=== PATIENT | male | born 1955 | race Caucasian/White ===

== ENCOUNTER → 2024-07-04 11:36 | Outpatient (REF) | payer MEDICARE, OTHER, SELFPAY | LOC: RAD 11:36 | PROVIDERS: ATTENDING PHYSICIAN Family Medicine | DX: R10.84 Generalized abdominal pain (principal) | CPT/HCPCS: 74177; Q9967 ==

== ENCOUNTER → 2025-01-10 13:43 | Outpatient (REF) | payer MEDICARE, OTHER, SELFPAY | LOC: HWRAD 13:43 | PROVIDERS: ATTENDING PHYSICIAN Family Medicine | DX: Z87.891 Personal history of nicotine dependence (principal) | CPT/HCPCS: 71271 ==

== ENCOUNTER 2025-07-29 07:45 | Emergency (ER) | payer MEDICARE, OTHER, SELFPAY ==
[2025-07-29 07:55] VITALS: BP 140/97
[2025-07-29 08:07] VITALS: BP 177/102
[2025-07-29 08:50] VITALS: BP 146/85
[2025-07-29 09:46] LABS: Hematocrit 46.1 % (39.0-52.0); Hemoglobin 14.8 g/dL (13.0-18.0); Mean Corp Hgb Conc. 32.1 g/dL (33.0-37.0); Mean Corpuscular Volume 86.8 fL (80.0-94.0); Nucleated Red Blood Cells % 0 % (-); Red Cell Dist. Width 14.4 % (11.5-14.5)
[2025-07-29 10:00] VITALS: BP 121/78
[2025-07-29 10:23] LABS: ALT (SGPT) 26 U/L (0-50); AST (SGOT) 20 U/L (17-59); Albumin 4.6 g/dl (3.5-5.0); Alkaline Phosphatase 67 U/L (38-126); Blood Urea Nitrogen 29 mg/dl (9-20); Calcium 10.0 mg/dl (8.4-10.2); Carbon Dioxide 23 mmol/L (22-30); Chloride 107 mmol/L (98-107); Glucose 105 mg/dl (70-99); Potassium 5.2 mmol/L (3.5-5.1); Sodium 140 mmol/L (135-145); Total Protein 7.5 g/dl (6.3-8.2); eGFR > 60.00
--- NOTE | 2025-07-29 10:26 | ED.CVA ---
History of Present Illness
General
Chief Complaint: CVA/TIA Symptoms
Source: patient and family
Time Seen by Provider: 07/29/25 08:10
Onset of Stroke Symptoms
Onset of symptoms known: Yes
Date of onset of symptoms: 07/28/25
History of Present Illness
History of Present Illness:
69-year-old male presents to the emergency room complaining of right facial droop. Patient noticed the symptoms least 24 hours prior to arrival. Denies any focal weakness numbness or tingling elsewhere in his body. He has noticed that he cannot
hold water in that side of his face. Also feels like his right eye is not blinking properly. No headache. No known tick exposures.
Past History
Past History
ED Past Medical History: HTN and Hypercholesterolemia
ED Past Surgical History: Other (hernia, shoulder)
Social History
Tobacco: Smoker
Alcohol: Occasional
Drug: None
Personal:
Living: with family
Phy Exam
Physical Exam
Physical Exam:
General: Awake, Alert, Oriented X3. No acute distress.
Vitals: unremarkable
Head: Atraumatic
Eyes: Pupils equal, EOMI
Throat: Airway intact, no exudates
Neck: Trachea midline
Lungs: Clear and equal b/l
Heart: Regular rate, no murmurs
Abd: Soft, Nontender, No pulsatile mass
Neuro: Peripheral right facial droop. Patient has decreased movement of the forehead, eyebrow, right eyelid as well as the right side of his mouth. No focal weakness in the extremities. Sensation intact bilaterally. Gait intact
Skin: Warm, dry, no rash
Extremities: pulses equal b/l, no edema
Course
Orders/Labs/Results
Orders:
Orders
07/29/25 08:10
Electrocardiogram (*1) Stat
Reason for Study: Other
Other Reason for Exam: neuro symptoms
CT Head W/o Iv Contrast Urgent
Comment:
Reason For Exam: r facial droop
Cardiac Monitoring- Treatment ONCE
EKG- Treatment ONCE
07/29/25 09:04
Complete Blood Count/With Diff Urgent
Lyme Progressive Urgent
07/29/25 09:53
Comprehensive Metabolic Panel Urgent
07/29/25 10:28
Prednisone [Deltasone] 50 mg PO NOW STA
Valacyclovir HCl [Valtrex] 1,000 mg PO NOW STA
Abnormal Lab Results
07/29/25 07/29/25
09:04 09:53
MCHC 32.1 L g/dL
(33.0-37.0)
Abs Immat Gran (auto) 0.1 H 10^3/uL
(0-0.05)
Absolute Neuts (auto) 7.8 H 10^3/uL
(1.4-6.5)
Immature Gran % 0.7 H %
(0-0.5)
Neutrophils % 76.6 H %
(42.2-75.2)
Lymphocytes % 14.4 L %
(20.5-51.1)
Potassium 5.2 H mmol/L
(3.5-5.1)
BUN 29 H mg/dl
(9-20)
Glucose 105 H mg/dl
(70-99)
07/29/25 09:04
07/29/25 09:53
Vital Signs
Initial and Last Documented VS:
Initial Vital Signs
Temp Pulse Resp BP Pulse Ox
98.7 F 94 18 140/97 99
07/29/25 07:55 07/29/25 07:55 07/29/25 07:55 07/29/25 07:55 07/29/25 07:55
Last Documented Vital Signs
Temp Pulse Resp BP Pulse Ox
98.7 F 61 14 121/78 98
07/29/25 07:55 07/29/25 10:15 07/29/25 10:15 07/29/25 10:00 07/29/25 10:26
MDM/Problems Addressed
Differential Diagnosis Includes:
Jalloh's palsy, Lyme, mass occupying lesion
MDM/Problems Addressed:
Patient presents with right facial droop. Right facial droop was somewhat subtle but definitely appears to be a peripheral lesion. CT of the head shows no acute abnormality. Patient will be discharged with prednisone, valacyclovir
*Radiology
Radiology exam reviewed: radiology read reviewed
*Pulse Oximetry
SaO2: 98
Oxygen Mode of Delivery: Room air
Patient hypoxic: no
*EKG
Interpreted by ED Provider?: Yes
Interpretation: normal
Heart Rate: 64
Rate: normal
Rhythm: sinus
[place]: normal axis
Interval: normal interval
QRS Pattern: normal QRS
Ischemia: no ischemia
*Field Party Manager Interpretation
Rate: normal
Interpretation: normal
Heart Rate: 64
Rhythm: sinus
*Critical Care Note
Total Time (30-74mins, 75-104mins- exclusive of procedures): Not Applicable
ED Attending Note
-
Portions of this chart may have been created with voice recognition software.� Occasional wrong word or��sound alike� substitutions may have occurred due to the inherent limitations of voice recognition software.
Discharge Plan
Departure
Patient Disposition: Home (Routine Discharge)
Date of Disposition: 07/29/25
Time of Disposition: 10:26
Patient with high blood pressure during this ER visit?: Yes
Condition: Good
Discharge Problem:
Jalloh's palsy
Instructions: Jalloh's Palsy (DC)
Prescriptions:
New
valacyclovir [Valtrex] 1 gram tablet
1,000 mg PO TID Qty: 21 0RF
prednisone 50 mg tablet
50 mg PO DAILY Qty: 5 0RF
No Action
quinapril 40 MG tablet
40 mg PO DAILY
docusate sodium 100 MG capsule
100 mg PO DAILY
propranolol 120 MG capsule,extended release 24 hr
120 mg PO DAILY
metformin 500 MG tablet extended release 24 hr
1,000 mg PO BID
cholecalciferol (vitamin D3) 2,000 UNITS tablet
2,000 units PO DAILY
pitavastatin calcium [Livalo] 2 MG tablet
4 mg PO DAILY
icosapent ethyl [Vascepa] 1 GM capsule
2 gm PO BID
empagliflozin [Jardiance] 10 MG tablet
10 mg PO DAILY
fluticasone propion-salmeterol [Advair Diskus] 1 EACH blister with device
1 puff inhalation BID
Ventolin Hfa
1 puff inhalation BID PRN (Reason: wheezing)
hydrocodone-acetaminophen 1 TABLET tablet
1 - 2 tab PO Q4HPRN PRN (Reason: moderate to severe pain) Qty: 15 0RF
Referrals:
Fran Cherry MD [Family Provider, Family Practice]
Interventions
Interventions:
*Risk Screen - Suicide Last Done: 07/29/25 07:55
*General Assessment Last Done: 07/29/25 07:55
*Neglect/Abuse Screening Last Done: 07/29/25 07:55
*ED- Fall Risk Assessment Last Done: 07/29/25 10:30
*ED COVID-19 Vaccine History Last Done: 07/29/25 10:30
*ED Influenza Vaccine History Last Done: 07/29/25 10:30
*Nursing Disposition Last Done: 07/29/25 10:30
ED- Pulmonary Assessment Last Done: 07/29/25 09:42
ED- Neurological Assessment Last Done: 07/29/25 09:42
ED- Cardiac Assessment Last Done: 07/29/25 09:42
ED Swallowing Screen Last Done: 07/29/25 09:30
Discharge Date and Time
Print Language: HUNGARIAN
[2025-07-29] MEDS: VALTREX 1000 MG PO (10:36)
[2025-07-29] MEDS: DELTASONE 50 MG PO (10:37)
[2025-07-29 16:09] LABS: Lyme Antibody Screen, EIA Negative (Negative)
== END 2025-07-29 10:30 | disposition home or self-care (01) ==
LOC: EMR 07:45
PROVIDERS: EMERGENCY PHYSICIAN Emergency Medicine; FAMILY PHYSICIAN Family Medicine
DX: G51.0 Bell's palsy (principal); I10 Essential (primary) hypertension; E78.00 Pure hypercholesterolemia, unspecified; F17.200 Nicotine dependence, unspecified, uncomplicated
CPT/HCPCS: 99284; 70450; 80053; 85025; 86618; 93005

== ENCOUNTER → 2025-09-04 14:58 | Outpatient (REF) | payer MEDICARE, OTHER, SELFPAY | LOC: MRI 3T 14:58 | PROVIDERS: ATTENDING PHYSICIAN Specialist; FAMILY PHYSICIAN Family Medicine | DX: R97.20 Elevated prostate specific antigen [PSA] (principal) | CPT/HCPCS: 72197; A9575 ==

== ENCOUNTER → 2025-09-09 10:59 | Outpatient (REF) | payer MEDICARE, OTHER, SELFPAY | LOC: CLAB 10:59 | PROVIDERS: ATTENDING PHYSICIAN Specialist | DX: R97.20 Elevated prostate specific antigen [PSA] (principal) | CPT/HCPCS: 88305 ==

== ENCOUNTER 2025-09-26 04:07 | Emergency (ER) | payer MEDICARE, OTHER, SELFPAY ==
[2025-09-26 04:09] VITALS: BP 166/85
[2025-09-26 04:31] VITALS: BP 116/80
[2025-09-26 05:00] VITALS: BP 118/77
[2025-09-26 05:13] LABS: Urine Character Slightly Cloudy (Clear)
[2025-09-26 05:33] LABS: Urine Red Blood Cell 90-100 /HPF (0-2); Urine Urothelial Cell 16-20 /LPF (FEW)
[2025-09-26 05:34] LABS: Urine White Cell 40-50 /HPF (0-5)
[2025-09-26 06:00] VITALS: BP 124/61
--- NOTE | 2025-09-26 06:26 | ED.GENMED ---
History of Present Illness
General
Chief Complaint: Male Genito-Urinary Symptoms
Source: patient
Exam Limitations: none
Time Seen by Provider: 09/26/25 06:07
History of Present Illness
History of Present Illness:
70-year-old male with recent diagnosis of prostate cancer presents with complaints of dysuria urgency and hematuria. This was preceded by several days of diarrhea. He is currently in the process of obtaining an oncologist. He has not yet received
any treatment for his prostate cancer. He has a history of [id number] diabetes hypertension hyperlipidemia. He denies vomiting. He notes intermittent chills. He had a prostate biopsy 3 weeks ago.
Past History
Past History
ED Past Medical History: HTN and Hypercholesterolemia
ED Past Surgical History: Other (hernia, shoulder)
Social History
Tobacco: Smoker
Alcohol: Occasional
Drug: None
Personal:
Living: with family
Phy Exam
Physical Exam
Physical Exam:
General: Well-appearing male no acute respiratory distress
HEENT: Normal cephalic atraumatic
Heart: Regular rate and rhythm
Lungs: Clear no wheeze
Abdomen is soft tender to the suprapubic and left lower quadrant nondistended
Extremities: No cyanosis
Skin is warm no rash
Course
Orders/Labs/Results
Orders:
Orders
09/26/25 05:02
Urinalysis Reflex To Culture Urgent
Date Specimen was Collected: 09/26/25
Time Specimen was Collected: 04:47
Urine Microscopic Reflex Cult Urgent
Urine Culture Urgent
IBIS Source: U
Specimen Description:
Date Specimen was Collected: 09/26/25
Time Specimen was Collected: 04:47
09/26/25 06:26
CT Abd/pelvis W Iv Cont Urgent
Comment:
Reason For Exam: abdominal cristobal, hematuria, diarrhea
09/26/25 06:44
Complete Blood Count/With Diff Urgent
09/26/25 08:05
Comprehensive Metabolic Panel Urgent
Abnormal Lab Results
09/26/25 09/26/25 09/26/25
05:02 06:44 08:05
RBC 4.35 L 10^6/uL
(4.70-6.10)
Hgb 12.7 L g/dL
(13.0-18.0)
Hct 37.9 L %
(39.0-52.0)
Abs Immat Gran (auto) 0.1 H 10^3/uL
(0-0.05)
Absolute Neuts (auto) 7.5 H 10^3/uL
(1.4-6.5)
Absolute Lymphs (auto) 1.1 L 10^3/uL
(1.2-3.4)
Absolute Monos (auto) 0.8 H 10^3/uL
(0.1-0.6)
Immature Gran % 0.6 H %
(0-0.5)
Neutrophils % 78.0 H %
(42.2-75.2)
Lymphocytes % 11.4 L %
(20.5-51.1)
Sodium 131 L mmol/L
(135-145)
Carbon Dioxide 20 L mmol/L
(22-30)
BUN 42 H mg/dl
(9-20)
Creatinine 1.5 H mg/dL
(0.7-1.3)
Glucose 117 H mg/dl
(70-99)
Ur Occult Blood Reflex 4+ A
(Negative)
Leukocyte Esterase Rfl 1+ A
(Negative)
Urine RBC 90-100 A /HPF
(0-2)
Urine WBC (Reflex) 40-50 A /HPF
(0-5)
Urine Bacteria (Reflex) Moderate A
(Negative)
Urine Glucose 4+ A
(Negative)
Urine Albumin (Reflex) 3+ A
(Neg - Trace)
09/26/25 06:44
09/26/25 08:05
Vital Signs
Initial and Last Documented VS:
Initial Vital Signs
Temp Pulse Resp BP Pulse Ox
98.8 F 96 18 166/85 100
09/26/25 04:09 09/26/25 04:09 09/26/25 04:09 09/26/25 04:09 09/26/25 04:09
Last Documented Vital Signs
Temp Pulse Resp BP Pulse Ox
98.8 F 73 19 124/61 98
09/26/25 04:09 09/26/25 06:30 09/26/25 06:30 09/26/25 06:00 09/26/25 06:30
MDM/Problems Addressed
Differential Diagnosis Includes:
Patient here with dysuria urgency frequency and hematuria. He is not anticoagulated. Question cystitis versus renal colic diverticulitis
Urinalysis shows hematuria with moderate bacteria. Labs pending will order CT.
*Pulse Oximetry
SaO2: 98
Oxygen Mode of Delivery: Room air
Patient hypoxic: no
*Critical Care Note
Total Time (30-74mins, 75-104mins- exclusive of procedures): Not Applicable
Update Note
Update Note:
CT demonstrates mild acute sigmoid colitis likely infectious or inflammatory. Concern for possible hemorrhagic cystitis based on urinalysis. Overall he is nontoxic. He has voided multiple times since being here. Last time he voided states it was
less bloody. Will cover with Augmentin and have him follow-up with urology. No indication for admission
ED Attending Note
-
Portions of this chart may have been created with voice recognition software.� Occasional wrong word or��sound alike� substitutions may have occurred due to the inherent limitations of voice recognition software.
Discharge Plan
Departure
Patient Disposition: Home (Routine Discharge)
Date of Disposition: 09/26/25
Time of Disposition: 10:12
Patient with high blood pressure during this ER visit?: No
Discharge Problem:
Acute hemorrhagic cystitis, Colitis
Instructions: Blood in the Urine (Hematuria), Adult (DC)
Prescriptions:
New
amoxicillin-pot clavulanate 875-125 mg tablet
1 tab PO BID Qty: 14 0RF
No Action
quinapril 40 MG tablet
40 mg PO DAILY
docusate sodium 100 MG capsule
100 mg PO DAILY
propranolol 120 MG capsule,extended release 24 hr
120 mg PO DAILY
metformin 500 MG tablet extended release 24 hr
1,000 mg PO BID
cholecalciferol (vitamin D3) 2,000 UNITS tablet
2,000 units PO DAILY
pitavastatin calcium [Livalo] 2 MG tablet
4 mg PO DAILY
icosapent ethyl [Vascepa] 1 GM capsule
2 gm PO BID
empagliflozin [Jardiance] 10 MG tablet
10 mg PO DAILY
fluticasone propion-salmeterol [Advair Diskus] 1 EACH blister with device
1 puff inhalation BID
Ventolin Hfa
1 puff inhalation BID PRN (Reason: wheezing)
hydrocodone-acetaminophen 1 TABLET tablet
1 - 2 tab PO Q4HPRN PRN (Reason: moderate to severe pain) Qty: 15 0RF
valacyclovir [Valtrex] 1 gram tablet
1,000 mg PO TID Qty: 21 0RF
prednisone 50 mg tablet
50 mg PO DAILY Qty: 5 0RF
Referrals:
Fran Cherry MD [Family Provider, Family Practice]
Activity Restrictions/Additional Instructions:
Drink plenty of clear liquids. Use Augmentin as directed. Follow-up with urology. Return if worse otherwise
Interventions
Interventions:
*Risk Screen - Suicide Last Done: 09/26/25 04:09
*General Assessment Last Done: 09/26/25 05:06
*Neglect/Abuse Screening Last Done: 09/26/25 05:06
*ED COVID-19 Vaccine History Last Done: 09/26/25 05:06
*ED Influenza Vaccine History Last Done: 09/26/25 05:06
[facility] Fall Risk Assessment Tool Last Done: 09/26/25 05:08
ED-Male Genitourinary Assessment Last Done: 09/26/25 05:25
Discharge Date and Time
Print Language: CAMEROONIAN
[2025-09-26 06:55] LABS: Hematocrit 37.9 % (39.0-52.0); Hemoglobin 12.7 g/dL (13.0-18.0); Mean Corp Hgb Conc. 33.5 g/dL (33.0-37.0); Mean Corpuscular Volume 87.1 fL (80.0-94.0); Nucleated Red Blood Cells % 0 % (-); Platelet Count 227 10^3/uL (130-400); Red Cell Dist. Width 14.3 % (11.5-14.5)
[2025-09-26 07:00] VITALS: BP 110/72
[2025-09-26 08:00] VITALS: BP 110/72
[2025-09-26 08:43] LABS: ALT (SGPT) 21 U/L (0-50); AST (SGOT) 19 U/L (17-59); Albumin 3.9 g/dl (3.5-5.0); Alkaline Phosphatase 68 U/L (38-126); Blood Urea Nitrogen 42 mg/dl (9-20); Calcium 9.1 mg/dl (8.4-10.2); Carbon Dioxide 20 mmol/L (22-30); Chloride 104 mmol/L (98-107); Glucose 117 mg/dl (70-99); Potassium 5.1 mmol/L (3.5-5.1); Sodium 131 mmol/L (135-145); Total Protein 6.6 g/dl (6.3-8.2); eGFR 50.08
== END 2025-09-26 10:25 | disposition home or self-care (01) ==
LOC: EMR 04:07
PROVIDERS: Emergency Medicine; Physician Assistant; EMERGENCY PHYSICIAN Emergency Medicine; FAMILY PHYSICIAN Family Medicine
DX: N30.01 Acute cystitis with hematuria (principal); K52.9 Noninfective gastroenteritis and colitis, unspecified; C61 Malignant neoplasm of prostate; E11.9 Type 2 diabetes mellitus without complications; I10 Essential (primary) hypertension; E78.00 Pure hypercholesterolemia, unspecified; F17.200 Nicotine dependence, unspecified, uncomplicated; Z79.84 Long term (current) use of oral hypoglycemic drugs
CPT/HCPCS: 99284; 74177; 80053; 81003; 81015; 85025; 87077; 87086; Q9967

== ENCOUNTER 2025-10-06 12:27 | Emergency (ER) | payer MEDICARE, OTHER, SELFPAY ==
[2025-10-06 12:29] VITALS: BP 149/78
[2025-10-06 13:25] VITALS: BMI 26.1
--- NOTE | 2025-10-06 13:29 | EDRN ---
Pt states symptoms started post his biopsy of prostate 09/[address] Rockwell. Pt was seen in ER a 1.5 ago and was placed on amoxicillin and when course down urine started to look cloudy and yesterday started to see blood again. Pt when here last
had clots as well as bleeding. Pt states he voids then feels as if he needs to void again and gets blood.
[2025-10-06 13:51] VITALS: BP 139/74
[2025-10-06 13:57] VITALS: BMI 24.3
[2025-10-06 14:00] LABS: Hematocrit 43.9 % (39.0-52.0); Hemoglobin 14.3 g/dL (13.0-18.0); Mean Corp Hgb Conc. 32.6 g/dL (33.0-37.0); Mean Corpuscular Volume 88.5 fL (80.0-94.0); Nucleated Red Blood Cells % 0 % (-); Platelet Count 347 10^3/uL (130-400); Red Cell Dist. Width 14.2 % (11.5-14.5)
[2025-10-06 14:01] LABS: Urine Character Slightly Cloudy (Clear)
[2025-10-06 14:13] LABS: Urine Squamous Cell 0-2 /LPF (Few)
[2025-10-06 14:14] LABS: Urine Red Blood Cell 50-60 /HPF (0-2); Urine White Cell 26-30 /HPF (0-5)
--- NOTE | 2025-10-06 14:17 | EDRN ---
Shreyas Williamson PA in room w/pt at this time.
[2025-10-06 14:19] LABS: ALT (SGPT) 37 U/L (0-50); AST (SGOT) 25 U/L (17-59); Albumin 5.0 g/dl (3.5-5.0); Alkaline Phosphatase 89 U/L (38-126); Blood Urea Nitrogen 24 mg/dl (9-20); Calcium 10.0 mg/dl (8.4-10.2); Carbon Dioxide 24 mmol/L (22-30); Chloride 101 mmol/L (98-107); Estimated Creatinine Clearance 65 ml/min; Glucose 80 mg/dl (70-99); Potassium 5.0 mmol/L (3.5-5.1); Sodium 136 mmol/L (135-145); Total Protein 8.1 g/dl (6.3-8.2); eGFR > 60.00
--- NOTE | 2025-10-06 14:27 | ED.GENMED ---
History of Present Illness
General
Chief Complaint: Male Genito-Urinary Symptoms
Source: patient
Time Seen by Provider: 10/06/25 14:10
History of Present Illness
History of Present Illness:
70-year-old male with newly diagnosed metastatic prostate cancer, hypertension, hyperlipidemia, COPD presenting to the emergency department for evaluation of persistent hematuria and dysuria at the very end of his stream noting that despite the oral
amoxicillin he was given for suspected urinary tract infection he has not had any relief of symptoms. Patient is scheduled to see his oncology team and radiation team tomorrow for the first time to discuss treatment planning. He notes recently
having a PET scan here a few days ago, unsure of the results. He denies any fevers, chills, rigors, nausea or vomiting. He describes the hematuria to be more of a blood-tinged urine, no clots and does not feel like he is not emptying his bladder
upon urinating
Past History
Past History
ED Past Medical History: HTN and Hypercholesterolemia
ED Past Surgical History: Other (hernia, shoulder)
Social History
Tobacco: Smoker
Alcohol: Occasional
Drug: None
Personal:
Living: with family
Review of Systems
Review of Systems
All Other Systems: ROS reviewed and negative except as documented in HPI and ROS
Phy Exam
Physical Exam
Physical Exam:
GENERAL: Alert , in no apparent distress
EYE: clear conjunctiva b/l
HEAD: NCAT
ENT: mmm.
CARDIAC: Regular rate and rhythm .
LUNGS: Clear breath sounds bilaterally, no acute respiratory distress, no wheezes/rales/rhonchi
ABDOMEN: Soft, without focal tenderness, no r/g, no cvat
NEUROLOGICAL: Alert and oriented
SKIN: Warm and dry, skin intact.
MUSCULOSKELETAL: well perfused.
PSYCH: Normal and appropriate interaction.
Scores
Heart Failure Risk
Heart Failure Risk Score: Not Applicable
Heart Score for Chest Pain Patients
STEMI patient?: Not applicable
Withdrawal Assessment of Alcohol
Withdrawal Assessment Completed?: Not applicable
Course
Orders/Labs/Results
Orders:
Orders
10/06/25 13:32
IV Insert/Care/Rem.- Treatment PRN
10/06/25 13:47
Complete Blood Count/With Diff Urgent
Comprehensive Metabolic Panel Urgent
Urinalysis Reflex To Culture Urgent
Date Specimen was Collected: 10/06/25
Time Specimen was Collected: 13:37
Urine Microscopic Reflex Cult Urgent
Urine Culture Urgent
IBIS Source: U
Specimen Description:
Date Specimen was Collected: 10/06/25
Time Specimen was Collected: 13:37
10/06/25 14:55
Phenazopyridine HCl [Pyridium] 200 mg PO NOW STA
Sulfamethox./Trimethoprim Ds [Bactrim Ds 800 mg/160 mg] 1 tablet PO NOW STA
Abnormal Lab Results
10/06/25
13:47
WBC 12.8 H 10^3/uL
(4.8-10.8)
MCHC 32.6 L g/dL
(33.0-37.0)
Abs Immat Gran (auto) 0.1 H 10^3/uL
(0-0.05)
Absolute Neuts (auto) 9.7 H 10^3/uL
(1.4-6.5)
Absolute Monos (auto) 0.7 H 10^3/uL
(0.1-0.6)
Immature Gran % 0.6 H %
(0-0.5)
Neutrophils % 75.7 H %
(42.2-75.2)
Lymphocytes % 15.3 L %
(20.5-51.1)
BUN 24 H mg/dl
(9-20)
Ur Occult Blood Reflex 4+ A
(Negative)
Leukocyte Esterase Rfl 2+ A
(Negative)
Urine RBC 50-60 A /HPF
(0-2)
Urine WBC (Reflex) 26-30 A /HPF
(0-5)
Urine Bacteria (Reflex) Few A
(Negative)
Urine Glucose 4+ A
(Negative)
Urine Albumin (Reflex) 2+ A
(Neg - Trace)
10/06/25 13:47
10/06/25 13:47
Vital Signs
Initial and Last Documented VS:
Initial Vital Signs
Temp Pulse Resp BP Pulse Ox
97.8 F 66 16 149/78 97
10/06/25 12:29 10/06/25 12:29 10/06/25 12:29 10/06/25 12:29 10/06/25 12:29
Last Documented Vital Signs
Temp Pulse Resp BP Pulse Ox
97.8 F 59 16 125/73 100
10/06/25 12:29 10/06/25 15:10 10/06/25 13:51 10/06/25 15:10 10/06/25 14:32
MDM/Problems Addressed
Differential Diagnosis Includes:
Malignancy
UTI
Anemia
MDM/Problems Addressed:
70-year-old male presenting to the ER for persistent hematuria, noting dysuria following the end of his urinary stream. No fevers. Currently in the process of starting treatment for metastatic prostate cancer. PET scan reviewed showing the
following results:
IMPRESSION:
Extensive confluent increased FDG activity throughout the peripheral zone of the prostate gland (left greater than right) consistent with prostate cancer.
FDG avid left internal and external iliac lymph nodes highly suggestive of metastatic lymphadenopathy.
Will check labs, urine, and discuss with urology with anticipatient of continued outpatient eval
Chronic conditions affecting care: Cancer
Acute Exacerbation and/or Progression of Chronic Illness: Cancer
*Pulse Oximetry
SaO2: 100
Oxygen Mode of Delivery: Room air
Patient hypoxic: no
*Critical Care Note
Total Time (30-74mins, 75-104mins- exclusive of procedures): Not Applicable
Data Reviewed
Review of Other/Old Records Reveals: Labs, Records and Radiology Studies
Source: patient, records and spouse
Patient Management
Social determinants of health affecting care: Strong social support
Discussion with other providers: Ct Scan Technician
Escalation/DeEscalation of care consider admission/obs:
Case discussed with urology. They are okay with us initiating the patient on Bactrim and Pyridium for symptomatic relief. Patient has appointment with his oncology and radiation team tomorrow. At this time I do believe he is okay for discharge
home. Aware of return precautions to the emergency department
ED Attending Note
-
Portions of this chart may have been created with voice recognition software.� Occasional wrong word or��sound alike� substitutions may have occurred due to the inherent limitations of voice recognition software.
Discharge Plan
Departure
Patient Disposition: Home (Routine Discharge)
Date of Disposition: 10/06/25
Time of Disposition: 14:54
Patient with high blood pressure during this ER visit?: Yes
Discharge Problem:
Hematuria
Instructions: Urinary Tract Infection - Men
Prescriptions:
New
sulfamethoxazole-trimethoprim [Bactrim DS] 800-160 mg tablet
1 tab PO BID 10 Days Qty: 20 0RF
phenazopyridine [Pyridium] 200 mg tablet
200 mg PO TID Qty: 9 0RF
No Action
propranolol 120 MG capsule,extended release 24 hr
120 mg PO DAILY
metformin 500 MG tablet extended release 24 hr
1,000 mg PO QPM
cholecalciferol (vitamin D3) 2,000 UNITS tablet
2,000 units PO DAILY
pitavastatin calcium [Livalo] 2 MG tablet
4 mg PO DAILY
Jardiance 10 MG tablet
10 mg PO DAILY
primidone 50 mg tablet
50 mg PO HS
cyanocobalamin (vitamin B-12) 1,000 mcg Tablet
1,000 mcg PO DAILY
albuterol sulfate 90 mcg/actuation Hfa Aerosol Inhaler
2 puff INHALATION Q6H PRN (Reason: sob)
lisinopril 40 mg tablet
40 mg PO DAILY
metformin 500 mg tablet extended release 24 hr
500 mg PO DAILY
ezetimibe 10 mg tablet
10 mg PO DAILY
alpha lipoic acid 600 mg Capsule
600 mg PO DAILY
benfotiamine 150 mg Capsule
300 mg PO DAILY
Referrals:
Fran Cherry MD [Family Provider, Family Practice]
Interventions
Interventions:
*Risk Screen - Suicide Last Done: 10/06/25 12:31
*General Assessment Last Done: 10/06/25 13:25
*Neglect/Abuse Screening Last Done: 10/06/25 12:31
*ED COVID-19 Vaccine History Last Done: 10/06/25 13:25
*ED Influenza Vaccine History Last Done: 10/06/25 13:25
[facility] Fall Risk Assessment Tool Last Done: 10/06/25 13:25
*Nursing Disposition Last Done: 10/06/25 15:14
ED-Male Genitourinary Assessment Last Done: 10/06/25 13:28
Discharge Date and Time
Discharge Date/Time: 10/06/25 15:15
Print Language: TURKMEN
[2025-10-06] MEDS: BACTRIM DS 800 MG/160 MG 1 TABLET PO (15:09)
[2025-10-06 15:10] VITALS: BP 125/73
== END 2025-10-06 15:15 | disposition home or self-care (01) ==
LOC: EMR 12:27
PROVIDERS: EMERGENCY PHYSICIAN Emergency Medicine; FAMILY PHYSICIAN Family Medicine; REFERRING PHYSICIAN Specialist
DX: R31.9 Hematuria, unspecified (principal); I10 Essential (primary) hypertension; C61 Malignant neoplasm of prostate; E78.00 Pure hypercholesterolemia, unspecified; J44.9 Chronic obstructive pulmonary disease, unspecified; F17.200 Nicotine dependence, unspecified, uncomplicated
CPT/HCPCS: 99283; 80053; 81003; 81015; 85025; 87077; 87086; 87186

== ENCOUNTER 2025-10-18 10:04 | Emergency (ER) | payer MEDICARE, OTHER, SELFPAY ==
[2025-10-18 10:14] VITALS: BP 189/68
[2025-10-18 11:10] VITALS: BMI 24.5
[2025-10-18 11:16] VITALS: BP 120/72
--- NOTE | 2025-10-18 11:29 | ED.GENMED ---
History of Present Illness
<Mojgan Salcedo PA-C - Last Filed: 10/18/25 17:09>
General
Chief Complaint: Generalized Pain
Source: patient
Exam Limitations: none
Time Seen by Provider: 10/18/25 11:16
Nursing documentation reviewed up to this point in time: agreed with
History of Present Illness
History of Present Illness:
seeMMD
Past History
<Mojgan Salcedo PA-C - Last Filed: 10/18/25 17:09>
Past History
ED Past Medical History: HTN and Hypercholesterolemia
ED Past Surgical History: Other (hernia, shoulder)
Social History
Tobacco: Smoker
Alcohol: Occasional
Drug: None
Personal:
Living: with family
Phy Exam
<Mojgan Salcedo PA-C - Last Filed: 10/18/25 17:09>
Physical Exam
Physical Exam:
SEE mdm
Course
<Mojgan Salcedo PA-C - Last Filed: 10/18/25 17:09>
Orders/Labs/Results
Orders:
Orders
10/18/25 10:17
IV Insert/Care/Rem.- Treatment PRN
10/18/25 10:18
Electrocardiogram (*1) Urgent
Reason for Study: Fatigue / Weakness
EKG- Treatment ONCE
10/18/25 11:11
Complete Blood Count/With Diff Urgent
Comprehensive Metabolic Panel Urgent
Creatine Phosphokinase Urgent
Comment: ADD ON
Lipase Urgent
10/18/25 11:45
Add On- LAB Urgent
Tests Added?: cpk
CT Abd/Pel (IV only)-DH only Urgent
Comment:
Reason For Exam: back/abd pain, nausea, prostate CA
0.9% Sodium Chloride 1000 ml [Nss] 1,000 ml IV BOLUS
10/18/25 11:46
Ketorolac [Toradol] 15 mg IV NOW STA
10/18/25 11:51
COVID-19 Antigen Urgent
Source: Nasal Swab
Lactic Acid Urgent
Blood Culture Q30M
IBIS Source: Blood/Venous
Specimen Description:
Blood Culture Q30M
IBIS Source: Blood/Venous
Specimen Description:
Influenza A+B Rapid Molecular Urgent
BIIS Source: Nasal Swab
Specimen Description:
10/18/25 11:55
Urinalysis Reflex To Culture Urgent
Date Specimen was Collected: 10/18/25
Time Specimen was Collected: 11:50
Urine Microscopic Reflex Cult Urgent
Urine Culture Urgent
IBIS Source: U
Specimen Description:
Date Specimen was Collected: 10/18/25
Time Specimen was Collected: 11:50
Abnormal Lab Results
10/18/25 10/18/25
11:11 11:55
WBC 3.0 L 10^3/uL
(4.8-10.8)
RBC 4.19 L 10^6/uL
(4.70-6.10)
Hgb 12.0 L g/dL
(13.0-18.0)
Hct 35.5 L %
(39.0-52.0)
Absolute Lymphs (auto) 0.8 L 10^3/uL
(1.2-3.4)
Immature Gran % 0.7 H %
(0-0.5)
Monocytes % 10.9 H %
(1.7-9.3)
Sodium 132 L mmol/L
(135-145)
Carbon Dioxide 20 L mmol/L
(22-30)
BUN 30 H mg/dl
(9-20)
Glucose 159 H mg/dl
(70-99)
ALT 81 H U/L
(0-50)
Creatine Kinase 32 L U/L
(55-170)
Ur Occult Blood Reflex 1+ A
(Negative)
Urine Bacteria (Reflex) Moderate A
(Negative)
Urine Glucose 4+ A
(Negative)
Urine Albumin (Reflex) 2+ A
(Neg - Trace)
10/18/25 11:11
10/18/25 11:11
Vital Signs
Initial and Last Documented VS:
Initial Vital Signs
Temp Pulse Resp BP Pulse Ox
36.8 C 111 22 189/68 98
10/18/25 10:14 10/18/25 10:14 10/18/25 10:14 10/18/25 10:14 10/18/25 10:14
Last Documented Vital Signs
Temp Pulse Resp BP Pulse Ox
36.8 C 74 15 117/72 97
10/18/25 10:14 10/18/25 12:15 10/18/25 12:15 10/18/25 12:00 10/18/25 12:15
<Irena Iraheta MD - Last Filed: 10/18/25 13:52>
Orders/Labs/Results
Orders:
Orders
10/18/25 10:17
IV Insert/Care/Rem.- Treatment PRN
10/18/25 10:18
Electrocardiogram (*1) Urgent
Reason for Study: Fatigue / Weakness
EKG- Treatment ONCE
10/18/25 11:11
Complete Blood Count/With Diff Urgent
Comprehensive Metabolic Panel Urgent
Creatine Phosphokinase Urgent
Comment: ADD ON
Lipase Urgent
10/18/25 11:45
Add On- LAB Urgent
Tests Added?: cpk
CT Abd/Pel (IV only)-DH only Urgent
Comment:
Reason For Exam: back/abd pain, nausea, prostate CA
0.9% Sodium Chloride 1000 ml [Nss] 1,000 ml IV BOLUS
10/18/25 11:46
Ketorolac [Toradol] 15 mg IV NOW STA
10/18/25 11:51
COVID-19 Antigen Urgent
Source: Nasal Swab
Lactic Acid Urgent
Blood Culture Q30M
IBIS Source: Blood/Venous
Specimen Description:
Blood Culture Q30M
IBIS Source: Blood/Venous
Specimen Description:
Influenza A+B Rapid Molecular Urgent
IBIS Source: Nasal Swab
Specimen Description:
10/18/25 11:55
Urinalysis Reflex To Culture Urgent
Date Specimen was Collected: 10/18/25
Time Specimen was Collected: 11:50
Urine Microscopic Reflex Cult Urgent
Urine Culture Urgent
IBIS Source: U
Specimen Description:
Date Specimen was Collected: 10/18/25
Time Specimen was Collected: 11:50
Abnormal Lab Results
10/18/25 10/18/25
11:11 11:55
WBC 3.0 L 10^3/uL
(4.8-10.8)
RBC 4.19 L 10^6/uL
(4.70-6.10)
Hgb 12.0 L g/dL
(13.0-18.0)
Hct 35.5 L %
(39.0-52.0)
Absolute Lymphs (auto) 0.8 L 10^3/uL
(1.2-3.4)
Immature Gran % 0.7 H %
(0-0.5)
Monocytes % 10.9 H %
(1.7-9.3)
Sodium 132 L mmol/L
(135-145)
Carbon Dioxide 20 L mmol/L
(22-30)
BUN 30 H mg/dl
(9-20)
Glucose 159 H mg/dl
(70-99)
ALT 81 H U/L
(0-50)
Creatine Kinase 32 L U/L
(55-170)
Ur Occult Blood Reflex 1+ A
(Negative)
Urine Bacteria (Reflex) Moderate A
(Negative)
Urine Glucose 4+ A
(Negative)
Urine Albumin (Reflex) 2+ A
(Neg - Trace)
10/18/25 11:11
10/18/25 11:11
Vital Signs
Initial and Last Documented VS:
Initial Vital Signs
Temp Pulse Resp BP Pulse Ox
36.8 C 111 22 189/68 98
10/18/25 10:14 10/18/25 10:14 10/18/25 10:14 10/18/25 10:14 10/18/25 10:14
Last Documented Vital Signs
Temp Pulse Resp BP Pulse Ox
36.8 C 74 15 117/72 97
10/18/25 10:14 10/18/25 12:15 10/18/25 12:15 10/18/25 12:00 10/18/25 12:15
<Mojgan Salcedo PA-C - Last Filed: 10/18/25 17:09>
MDM/Problems Addressed
Differential Diagnosis Includes:
see MDM
MDM/Problems Addressed:
Note:
CHIEF COMPLAINT(S)
- Persistent pain and fever following a prostate biopsy.
HISTORY OF PRESENT ILLNESS
The patient is a 70-year-old male who presents with multiple complaints following a prostate biopsy performed six weeks ago for diagnosed prostate cancer. The biopsy reportedly led to an infection, and the patient was treated initially with
amoxicillin, followed by trimethoprim-sulfamethoxazole (Bactrim) provided by the hospital when the initial antibiotic did not suffice. The patient reports respiratory symptoms such as chills and intermittent fever, although he did not specify the
exact timing of these events.
Additionally, the patient mentions a new onset of joint pain, significantly affecting the elbows and back, and increased severity in existing arthritis symptoms. He notes a bilateral feet tingling sensation, which has escalated to severe pain and
cold sensation, impacting his ability to walk. The patient has experienced nausea without any abdominal pain exacerbations and denies any recent history of vomiting or diarrhea.
Per the patient, the prostate cancer is stage 4A, with metastatic involvement suspected in the lymph nodes and nearby tissue but not confirmed at other locations. No specific cancer treatment has begun, scheduled to start October 28. The patient
also mentions a recent weight loss of approximately eight pounds over the last few months despite no intentional dietary changes.
Notably, the patient has a history of diabetes but indicates it is well-managed. The patient denies alcohol use and notes recent changes in appetite and general malaise.
PAST MEDICAL AND SURIGICAL HISTORY
1. Prostate cancer, stage 4A with metastasis suspected.
2. Diabetes Mellitus, reportedly controlled.
3. Arthritis, increased in severity.
SOCIAL DETERMINANTS AFFECTING HEALTH
- The patient denies alcohol consumption and reports limited appetite and significant unintended weight loss.
ALLERGIES
- Ciprofloxacin noted as an allergic medication.
SOCIAL HISTORY
- Denies alcohol use.
REVIEW OF SYSTEMS
- Constitutional: Reports fever, chills, and weight loss.
- Musculoskeletal: Severe joint pain, more pronounced in elbows and back.
- Neurologic: Tingling and severe pain in bilateral feet, described as painful and cold.
- Gastrointestinal: Nausea, with occasional abdominal discomfort.
- Genitourinary: Follow-up post prostate biopsy with persistent symptoms.
- Integumentary: No visible blood in urine currently.
PHYSICAL EXAM
- Nursing notes reviewed and vital signs reviewed.
GENERAL: Alert , in no apparent distress
EYE: pupils equal and reactive
NECK: Supple
ENT: o/p clr, mmm.
CARDIAC: Regular rate and rhythm .
LUNGS: Clear breath sounds bilaterally, no acute respiratory distress, no wheezes/rales/rhonchi
ABDOMEN: Soft, without focal tenderness, no r/g, no cvat, normal bowel sounds
Rectum: Palpable prostate which is nontender, no perineal infection signs, nontender
NEUROLOGICAL: Alert and oriented, no focal neuro deficits, sensation intact to his lower extremities, 5 out of 5 strength, no signs of cauda equina
SKIN: Warm and dry, skin intact. No open wounds to his perineum
MUSCULOSKELETAL: Joints are stable, full range of motion, no effusions no edema, well perfused. neg edna's sign
Back: Nontender, able to flex and extend, negative straight leg raise, able to ambulate
PSYCH: Normal and appropriate interaction.
PLAN
1. Imaging of the abdomen and pelvis to assess current status and any potential spread or other issues.
2. Administration of Toradol intravenously for pain management.
3. Initiation of urine tests and review of recent blood work to check for signs of infection or progression of illness.
4. Consideration of consultation with an infectious disease specialist for potential undiagnosed infection post-biopsy.
5. Monitor pain levels and reassess pain management strategies as needed.
DIFFERENTIAL DIAGNOSIS
The Differential Diagnosis includes, in no particular order and is not limited to:
1. Prostate cancer progression
2. Post-biopsy infection or abscess
3. Diabetic neuropathy
4. Reactive arthritis
5. Peripheral artery disease
6. Neuropathy secondary to chemotherapy or medications
7. Nutritional deficiencies
8. Metastatic bone involvement
9. Infection from another source such as cellulitis or osteomyeliti
10. Prostatits
seen by ed attending
multiple complaints in setting newly dx prostate ca not on treatment
on 3rd abx in a few weeks
healed prostate infection/urine symptoms after bx
but then dental pain a few days ago and started amox
no chestp ain
no sob
no fever here
also with back and joint pain, nausea, abd discomfort
w/u wiht labs, ct.
CARE-UPDATE
10/18/25 - 14:55
Blood work shows no findings to explain back and leg pain, and PET scan results are clear. No spinal lesions detected. Arthritis in elbows and sudden neuropathy symptoms remain unexplained. Mild dehydration noted. Current white blood cell count is
3, reduced from 12.8, indicating improvement. Urine test shows minimal blood, no infection signs. Kidney function appears stable. Diagnosed with prostate cancer. Blood pressure levels are fluctuating significantly, despite regular measurement.
Lisinopril discontinued; currently on propranolol. Pulse rates have been high but drop back to previous normal levels in the 60s. Sepsis is considered unlikely; no new infections suspected. Recommended continuous monitoring of symptoms, especially
any new fevers or changes in blood pressure, with a return to the hospital if conditions worsen.
<Mojgan Salcedo PA-C - Last Filed: 10/18/25 17:09>
*Pulse Oximetry
SaO2: 98
Patient hypoxic: no (97)
*Critical Care Note
Total Time (30-74mins, 75-104mins- exclusive of procedures): Not Applicable
ED Attending Note
<Mojgan Salcedo PA-C - Last Filed: 10/18/25 17:09>
-
Portions of this chart may have been created with voice recognition software.� Occasional wrong word or��sound alike� substitutions may have occurred due to the inherent limitations of voice recognition software.
<Irena Iraheta MD - Last Filed: 10/18/25 13:52>
ED Attending Note
Patient seen and examined by attending physician: Yes
I performed the substantive portion of visit, reviewed & personally made and approve the management plan that is documented in note by myself or [place].: Yes
ED Attending Note:
70-year-old male with recent diagnosis of prostate CA, recent infection status post prostate biopsy, finished antibiotics yesterday. Last night he noticed a toothache and went to an urgent care and was put back on antibiotics. Who presents
emergency department with many complaints. He describes weeks long history of joint pain in his bilateral elbows, sided mid back pain that is worse with movement, feeling like his neuropathy in his feet bilaterally has heightened, and dysuria. He
also notes chills but denies measured fever. He denies hematuria. He did have nausea and abdominal pain earlier in the week but this is since resolved. Patient states he wanted to get checked out before starting prostate treatment in early
October. He denies bleeding, black stool, headache, dizziness, chest pain, shortness of breath, difficulty urinating. On exam, patient overall well-appearing, nontoxic. Does not appear septic. Joints are not edematous, erythematous, and range of
motion is preserved. Motor 5 out of 5, sensory intact, cranial nerves II through XII intact. Exam overall unremarkable. Workup pending.
Discharge Plan
Departure
Patient Disposition: Home (Routine Discharge)
Date of Disposition: 10/18/25
Time of Disposition: 14:36
Patient with high blood pressure during this ER visit?: No
Condition: Fair
Covid-19: Not Applicable
Discharge Problem:
Back pain, Prostate cancer
Instructions: Prostate cancer, Back Pain
Prescriptions:
No Action
propranolol 120 MG capsule,extended release 24 hr
120 mg PO DAILY
metformin 500 MG tablet extended release 24 hr
1,000 mg PO QPM
cholecalciferol (vitamin D3) 2,000 UNITS tablet
2,000 units PO DAILY
pitavastatin calcium [Livalo] 2 MG tablet
4 mg PO DAILY
Jardiance 10 MG tablet
10 mg PO DAILY
primidone 50 mg tablet
50 mg PO HS
cyanocobalamin (vitamin B-12) 1,000 mcg Tablet
1,000 mcg PO DAILY
albuterol sulfate 90 mcg/actuation Hfa Aerosol Inhaler
2 puff INHALATION Q6H PRN (Reason: sob)
lisinopril 40 mg tablet
40 mg PO DAILY
metformin 500 mg tablet extended release 24 hr
500 mg PO DAILY
ezetimibe 10 mg tablet
10 mg PO DAILY
alpha lipoic acid 600 mg Capsule
600 mg PO DAILY
benfotiamine 150 mg Capsule
300 mg PO DAILY
sulfamethoxazole-trimethoprim [Bactrim DS] 800-160 mg tablet
1 tab PO BID 10 Days Qty: 20 0RF
phenazopyridine [Pyridium] 200 mg tablet
200 mg PO TID Qty: 9 0RF
Referrals:
Fran Cherry MD [Family Provider, [facility]]
Activity Restrictions/Additional Instructions:
Were not really sure the cause of your symptoms, you seem to have just mild dehydration but there is otherwise no findings that are concerning for new infection. You did have a little bit of microscopic blood in your urine but no signs of otherwise
infection. I do not think you need an antibiotic.
You should closely follow-up with both your urologist and your primary care doctor for further instructions on the workup for your cancer. Your CAT scan showed some nonspecific findings but nothing to be concerned about to cause your symptoms.
Your back and feet could be from the pain could be from neuropathy. Make sure to control your blood sugar. Return for any concerns.
Interventions
Interventions:
*General Assessment Last Done: 10/18/25 11:10
*Neglect/Abuse Screening Last Done: 10/18/25 11:10
*ED COVID-19 Vaccine History Last Done: 10/18/25 11:10
*ED Influenza Vaccine History Last Done: 10/18/25 11:10
[facility] Risk Assessment Tool Last Done: 10/18/25 11:10
*Risk Screen - Suicide (C-SSRS) Last Done: 10/18/25 10:19
*Nursing Disposition Last Done: 10/18/25 14:54
Discharge Date and Time
Discharge Date/Time: 10/18/25 14:54
Print Language: NAMIBIAN
[2025-10-18 11:45] LABS: ALT (SGPT) 81 U/L (0-50); AST (SGOT) 36 U/L (17-59); Albumin 3.8 g/dl (3.5-5.0); Alkaline Phosphatase 122 U/L (38-126); Blood Urea Nitrogen 30 mg/dl (9-20); Calcium 9.2 mg/dl (8.4-10.2); Carbon Dioxide 20 mmol/L (22-30); Chloride 104 mmol/L (98-107); Estimated Creatinine Clearance 64 ml/min; Glucose 159 mg/dl (70-99); Lipase 71 U/L (23-300); Potassium 4.7 mmol/L (3.5-5.1); Sodium 132 mmol/L (135-145); Total Protein 6.5 g/dl (6.3-8.2); eGFR > 60.00
[2025-10-18 11:47] VITALS: BP 145/65
[2025-10-18] MEDS: NSS 1000 IV (11:52)
[2025-10-18 11:53] LABS: Hematocrit 35.5 % (39.0-52.0); Hemoglobin 12.0 g/dL (13.0-18.0); Mean Corp Hgb Conc. 33.8 g/dL (33.0-37.0); Mean Corpuscular Volume 84.7 fL (80.0-94.0); Platelet Count 174 10^3/uL (130-400); Red Cell Dist. Width 14.2 % (11.5-14.5)
[2025-10-18] MEDS: TORADOL 15 MG IV (11:53)
[2025-10-18 12:00] VITALS: BP 117/72
[2025-10-18 12:10] LABS: Urine Character Clear (Clear)
[2025-10-18 12:26] LABS: COVID-19 Antigen Negative (Negative)
[2025-10-18 13:30] LABS: Nucleated Red Blood Cells % 0 % (-)
[2025-10-18 14:48] LABS: Urine Red Blood Cell None Seen /HPF (0-2); Urine Squamous Cell 0-2 /LPF (Few)
== END 2025-10-18 14:54 | disposition home or self-care (01) ==
LOC: EMR 10:04
PROVIDERS: Physician Assistant; EMERGENCY PHYSICIAN Emergency Medicine; FAMILY PHYSICIAN Family Medicine
DX: M54.9 Dorsalgia, unspecified (principal); C61 Malignant neoplasm of prostate; R53.1 Weakness; R10.9 Unspecified abdominal pain; R20.2 Paresthesia of skin; R11.0 Nausea; R63.4 Abnormal weight loss; E86.0 Dehydration; Z11.52 Encounter for screening for COVID-19; I10 Essential (primary) hypertension; E78.00 Pure hypercholesterolemia, unspecified; F17.200 Nicotine dependence, unspecified, uncomplicated; E11.9 Type 2 diabetes mellitus without complications; M19.90 Unspecified osteoarthritis, unspecified site; Z88.1 Allergy status to other antibiotic agents
CPT/HCPCS: 99285; 96361; 96374; 74177; 80053; 81003; 81015; 82550; 83605; 83690; 85025; 87040; 87086; 87502; 87811; 93005; Q9967